=== PATIENT | male | born 1955 | race Caucasian/White ===

== ENCOUNTER 2017-09-16 13:07 | Emergency (ER) | payer OTHER ==
[~2017-09-16] VITALS: Ht 190.5 cm; Wt 122.9 kg
[~2017-09-16 13:07] MED LIST: EQ GLUCOSAMINE1 EACH PO; FISH OIL 1,0001 EAC2 NG; ONE DAILY FOR1 EAC1 PO; ROBAXIN-750750 MG PO
[2017-09-16] MEDS ORDERED: VENTOLIN HFA18 GM INH (13:23)
[2017-09-16] MEDS ORDERED: ZITHROMAX250 MG PO (17:09)
--- NOTE | 2017-09-17 16:21 | EKG ---
[facility] [address] [facility] [place] [address] Signed Normal sinus rhythm Left axis deviation Abnormal ECG No previous ECGs available Confirmed by GARRET CEBALLOS MD ([id number] on 09/17/2017 4:21:17 PM Electronically Signed By: GARRET CEBALLOS MD 09/17/17 162 PATIENT NAME: LAURELLEANNAARSEN LACEYWIN Electrocardiogram DATE OF : 51 PHYSICIAN: GARRET CEBALLOS MD REPORT #: [id number] REPORT IS CONFIDENTIAL AND NOT TO BE RELEASED WITHOUT AUTHORIZATION
== END 2017-09-16 17:26 | disposition home or self-care (01) ==
LOC: ED 13:07
DX: J32.9 Chronic sinusitis, unspecified (principal); J40 Bronchitis, not specified as acute or chronic; J18.9 Pneumonia, unspecified organism; Z79.899 Other long term (current) drug therapy
CPT/HCPCS: 71046; 80053; 83605; 83735; 83880; 84484; 85025; 87040; 93005; 93010; 94640; 96360; 96361; 99284; J7030